=== PATIENT | female | born 1975 | race Caucasian/White ===

== ENCOUNTER 2024-06-10 21:41 | Emergency (ER) | payer OTHER ==
[~2024-06-10] VITALS: Ht 188 cm; Wt 133.3 kg
[2024-06-11] MEDS: NS 1,000 ML IV ONE (01:21)
[2024-06-11] MEDS: METOCLOPRAMIDE INJ 10MG/2ML VIAL IV ONE (01:21)
[2024-06-11] MEDS: diphenhydrAMINE 50MG/ML VIAL IV ONE (01:22)
[2024-06-11] MEDS: KETOROLAC 30 MG/ML 1ML VIAL IV ONE ×2 (01:22→08:09)
[2024-06-11] MEDS: VALPROATE SOD INJ 500 MG in D5W 50 ML IV ONE (03:28)
[2024-06-11] MEDS: MAG SULF 1GM/100ML (MAG RUN) 1 GM in IV 1 EA IV ONE (04:18)
[2024-06-11] MEDS: PROMETHAZINE 25MG/ML 1ML VIAL IV ONE (06:19)
[2024-06-11 08:16] VITALS: BP 126/64; TEMP 97; O2SAT 98
== END 2024-06-11 08:17 | disposition home or self-care (01) ==
LOC: M ED 21:41
DX: G43.909 Migraine, unspecified, not intractable, without status migrainosus (principal); I10 Essential (primary) hypertension; J45.909 Unspecified asthma, uncomplicated; F41.1 Generalized anxiety disorder; F32.A Depression, unspecified; F43.10 Post-traumatic stress disorder, unspecified; Z88.8 Allergy status to other drugs, medicaments and biological substances; Z91.040 Latex allergy status
CPT/HCPCS: 96361; 96365; 96366; 96374; 96375; 96376; 99284; J1200; J1885; J2550; J2765; J3475

== ENCOUNTER 2024-07-11 19:37 | Emergency (ER) | payer OTHER ==
[~2024-07-11] VITALS: Ht 188 cm; Wt 131.8 kg
[2024-07-11] MEDS ORDERED: ELIQ5TAB PO (19:51)
[2024-07-12 02:53] LABS: BASO # 0.1 10^3/uL (0.0-0.2); BASO % 1.6 % (0.0-1.0); EOS # 0.4 10^3/uL (0.0-0.5); EOS % 6.3 % (0.0-3.0); HEMATOCRIT 41.7 % (36.0-47.0); LYMPH # 2.9 10^3/uL (1.5-5.0); LYMPH % 51.4 % (24.0-44.0); MEAN CORPUSCULAR HEMOGLOBIN 32.3 pg (27.0-33.0); MEAN CORPUSCULAR HGB CONC 33.6 g/dl (32.0-36.5); MEAN CORPUSCULAR VOLUME 96.3 fl (80.0-96.0); MONO # 0.3 10^3/uL (0.0-0.8); MONO % 4.7 % (2.0-8.0); NEUTROPHILS % 35.8 % (36.0-66.0); PLATELET COUNT, AUTOMATED 179 10^3/uL (150-450); RED BLOOD COUNT 4.33 10^6/uL (4.00-5.40); WHITE BLOOD COUNT 5.6 10^3/uL (4.0-10.0)
[2024-07-12 03:18] LABS: BLOOD UREA NITROGEN 11 MG/DL (9-23); CALCIUM LEVEL 9.3 MG/DL (8.5-10.1); CARBON DIOXIDE LEVEL 26 MMOL/L (20-31); CHLORIDE LEVEL 110 MMOL/L (98-107); CREATININE FOR GFR 1.06 MG/DL (0.55-1.30); GLOMERULAR FILTRATION RATE 59.2 (>58); GLUCOSE, FASTING 89 MG/DL (60-100); POTASSIUM SERUM 3.8 MMOL/L (3.5-5.1); SODIUM LEVEL 141 MMOL/L (136-145)
[2024-07-12] MEDS: ACETAMINOPHEN *IV* 1,000 MG in IV 1 EA IV ONE (04:15)
[2024-07-12] MEDS: NS 1,000 ML IV ONE (04:15)
[2024-07-12] MEDS: dexAMETHasone 20MG/5ML VIAL IV ONE (04:25)
[2024-07-12] MEDS: METOCLOPRAMIDE INJ 10MG/2ML VIAL IV ONE (04:25)
[2024-07-12] MEDS: diphenhydrAMINE 50MG/ML VIAL IV STA (06:30)
[2024-07-12 06:49] LABS: MAGNESIUM LEVEL 1.6 MG/DL (1.8-2.4)
[2024-07-12] MEDS: MAG SULF 1GM/100ML (MAG RUN) 1 GM in IV 1 EA IV ONE ×2 (08:07→10:02)
[2024-07-12 09:50] LABS: HCG, SERUM QUALITATIVE NEGATIVE (NEGATIVE)
[2024-07-12] MEDS: VALPROATE SOD INJ 1,000 MG in D5W 50 ML IV ONE (09:55)
[2024-07-12] MEDS: RIZATRIPTAN MLT 10 MG TAB PO ONE (10:02)
[2024-07-12 11:11] VITALS: BP 134/79; TEMP 96.5; O2SAT 97
== END 2024-07-12 11:13 | disposition home or self-care (01) ==
LOC: M ED 19:37
DX: G43.909 Migraine, unspecified, not intractable, without status migrainosus (principal); Z91.048 Other nonmedicinal substance allergy status; Z88.8 Allergy status to other drugs, medicaments and biological substances; Z79.01 Long term (current) use of anticoagulants
CPT/HCPCS: 70450; 80048; 83735; 84703; 85025; 96365; 96366; 96374; 96375; 99284; J0131; J1100; J1200; J2765; J3475

== ENCOUNTER 2024-09-23 21:20 | Emergency (ER) | payer OTHER ==
[~2024-09-23] VITALS: Ht 188 cm; Wt 139.2 kg
[~2024-09-23 21:20] MED LIST: ELIQ5TAB PO
[2024-09-24] MEDS: ONDANSETRON 4MG ORAL DISINTEGRATING TAB PO ONE (01:16)
[2024-09-24] MEDS: KETOROLAC 30 MG/ML 1ML VIAL IM ONE (01:17)
[2024-09-24] MEDS: methocarbamoL 500 MG TAB PO ONE (01:54)
[2024-09-24] MEDS: HALOPERIDOL LACTATE 5MG/ML VIAL IV ONE (03:13)
[2024-09-24] MEDS: HYDROMORPHONE HCL 0.5 MG/ 0.5 ML SYRINGE IV ONE (03:15)
[2024-09-24] MEDS: ACETAMINOPHEN *IV* 1,000 MG in IV 1 EA IV ONE (03:17)
[2024-09-24 04:26] VITALS: BP 113/66; TEMP 97.6; O2SAT 100
== END 2024-09-24 04:42 | disposition home or self-care (01) ==
LOC: M ED 21:20
DX: G43.909 Migraine, unspecified, not intractable, without status migrainosus (principal); I10 Essential (primary) hypertension; J45.909 Unspecified asthma, uncomplicated; F32.A Depression, unspecified; F41.9 Anxiety disorder, unspecified; Z88.8 Allergy status to other drugs, medicaments and biological substances; Z91.048 Other nonmedicinal substance allergy status; Z79.01 Long term (current) use of anticoagulants
CPT/HCPCS: 70450; 96365; 96372; 96375; 99283; J0131; J1100; J1171; J1630; J1885